=== PATIENT | female | born 1995 | race Caucasian/White ===

== ENCOUNTER 2018-11-29 14:48 | Observation (INO) | payer OTHER ==
[~2018-11-29] VITALS: Ht 167.6 cm; Wt 74.4 kg
[2018-11-29 15:20] VITALS: BP 116/76
[2018-11-29] MEDS ORDERED: PREN-96 PO (16:01)
== END 2018-11-29 16:10 | disposition home or self-care (01) | DRG 833 ==
LOC: ER 14:54 → LDRP 15:30 → ER 15:31 → LDRP 15:31
PROVIDERS: ADMIT Obstetrics & Gynecology; ATTEND Obstetrics & Gynecology
DX: O36.8120 Decreased fetal movements, second trimester, not applicable or unspecified (principal); O26.892 Other specified pregnancy related conditions, second trimester; M54.9 Dorsalgia, unspecified; Z3A.22 22 weeks gestation of pregnancy
CPT/HCPCS: 59025; 81002; 99284; G0378

== ENCOUNTER 2019-01-03 19:33 | Observation (INO) | payer MEDICAID ==
[~2019-01-03] VITALS: Ht 167.6 cm; Wt 77.1 kg
[~2019-01-03 19:33] MED LIST: PREN-96 PO
== END 2019-01-03 20:25 | disposition home or self-care (01) | DRG 566 ==
LOC: LDRP 19:33
PROVIDERS: ADMIT Obstetrics & Gynecology; ATTEND Obstetrics & Gynecology
DX: O26.892 Other specified pregnancy related conditions, second trimester (principal); M54.9 Dorsalgia, unspecified; O42.912 Preterm premature rupture of membranes, unspecified as to length of time between rupture and onset of labor, second trimester; Z3A.27 27 weeks gestation of pregnancy
CPT/HCPCS: 59025; 81002; G0378